=== PATIENT | female | born 1990 | race Caucasian/White ===

== ENCOUNTER 2024-02-06 11:44 | Emergency (ER) | payer OTHER, SELFPAY ==
[2024-02-06 11:51] VITALS: BP 116/76
--- NOTE | 2024-02-06 13:01 | ED.GENMED ---
History of Present Illness
General
Chief Complaint: Problems
Source: patient
Exam Limitations: none
Time Seen by Provider: 02/06/24 13:00
Nursing documentation reviewed up to this point in time: agreed with
History of Present Illness
History of Present Illness:
33-year-old female G3, P2 presents emergency department today with concerns of vaginal bleeding for past 3 days as well as left-sided intermittent pelvic cramping. 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 and her last menstrual
period was 12 weeks ago. Patient had the confirmed with blood work but has not yet had ultrasound. Patient states that she for started to notice pink-tinged vaginal discharge 2 days ago. Patient states that she called her OB who advised
her that this was nothing to be concerned about and to continue to monitor her symptoms. Then when she woke up this morning, she noticed bright red avril blood and she started to have to use pads to help control the bleeding. Patient states that
she is only use 1 pad since this bleeding started, denies using multiple pads per hour. Patient denies any lightheadedness or dizziness. Patient denies any headaches. Patient states that she is currently pain-free but again does note intermittent
cramping on the left side. Patient states that her previous pregnancies were unremarkable. Patient has a follow-up appointment with her [facility] [employer] [facility] on Wednesday in 2 days.
Review of Systems
Review of Systems
All Other Systems: ROS reviewed and negative except as documented in HPI and ROS
Phy Exam
Physical Exam
Physical Exam:
General: Patient is well appearing and in no acute distress; non-toxic
Skin: Warm and dry, no rashes or lesions
Head: Normocephalic, atraumatic
Eyes: Sclera non-icteric. EOMs intact. PERRLA.
Cardiac: Regular rate and rhythm, no murmus
Pulm: Normal respiratory effort, no wheezes, rales, rhonchi
Abdomen: No abdominal tenderness
Neuro: CN II-XII intact, no focal neurologic deficits.
Psychiatric: Appropriate mood and affect.
Course
Orders/Labs/Results
Orders:
Orders
02/06/24 13:10
w/ Transvaginal US [US W Transvaginal] Urgent
Comment:
Reason For Exam: left sided pelvic pain, vaginal bleeding
02/06/24 15:15
Type+Screen Urgent
Beta HCG Quantitative Urgent
Is this a screen?: No
Complete Blood Count/With Diff Urgent
Comprehensive Metabolic Panel Urgent
02/06/24 15:35
ABO2 Urgent
BBK Wristband Number:
Associate notified that ABO2 has been ordered: [id number]
Date: 02/06/24
Time: 15:25
[employer] Brake Coupler ID: [id number]
Abnormal Lab Results
02/06/24
15:15
Abs Immat Gran (auto) 0.1 H 10^3/uL
(0-0.05)
Immature Gran % 1.1 H %
(0-0.5)
Creatinine 0.5 L mg/dL
(0.6-1.0)
Total Bilirubin 1.6 H mg/dl
(0.2-1.3)
02/06/24 15:15
02/06/24 15:15
Vital Signs
Initial and Last Documented VS:
Initial Vital Signs
Temp Pulse Resp BP Pulse Ox
98 F 84 16 116/76 98
02/06/24 11:51 02/06/24 11:51 02/06/24 11:51 02/06/24 11:51 02/06/24 11:51
Last Documented Vital Signs
Temp Pulse Resp BP Pulse Ox
98 F 66 16 116/52 100
02/06/24 11:51 02/06/24 16:53 02/06/24 16:53 02/06/24 16:53 02/06/24 15:42
Information
Weeks gestation: Weeks: (7)
Location: Location: (intrauterine)
MDM/Problems Addressed
Differential Diagnosis Includes:
Differentials include threatened , implantation bleeding, vaginitis, physiologic cervical changes of , molar
MDM/Problems Addressed:
33-year-old G3, P2 female presents emergency department today with concerns of vaginal bleeding in first trimester . She also has intermittent left-sided pelvic cramping. She woke up this morning with avril blood but has had pink-tinged
discharge the past few days. She follows with [facility]. On physical exam, she is well-appearing in no acute distress. She is hemodynamically stable. Her CBC and CMP are unremarkable. She is O+, no RhoGAM indicated at this time. She
had ultrasound performed which demonstrated an intrauterine gestational sac and yolk sac appreciated estimated to be approximately 7 weeks and 4 days however there is no pole or heart rate demonstrated which suggests that the
is not viable. Discussed findings this OB on-call who recommends repeat ultrasound with patient's [facility] [employer] [facility] this week. Discussed findings with patient. Patient states that she has a follow-up with OB on Wednesday. Gave patient ultrasound CD
and results as well as blood work. Patient stable for discharge. Return precautions discussed.
Chronic conditions affecting care:
n/a
Acute Exacerbation and/or Progression of Chronic Illness:
n/a
*Pulse Oximetry
Patient hypoxic: no
*Critical Care Note
Total Time (30-74mins, 75-104mins- exclusive of procedures): Not Applicable
Data Reviewed
Review of Other/Old Records Reveals: Records (No previous ER physician documentation to review) and Discharge Summary (No discharge summaries [facility] to review)
Source: patient and records
Prescriptions/Medications Considered But Not Given:
n/a
Further Testing Considered But Not Given:
n/a
Patient Management
Escalation/DeEscalation of care consider admission/obs:
Admit not indicated, patient stable for discharge, case reviewed with my attending Dr. Mendiola
ED Attending Note
-
Portions of this chart may have been created with voice recognition software.� Occasional wrong word or��sound alike� substitutions may have occurred due to the inherent limitations of voice recognition software.
Discharge Plan
Departure
Patient Disposition: Home (Routine Discharge)
Date of Disposition: 02/06/24
Time of Disposition: 16:37
Patient with high blood pressure during this ER visit?: Yes
Condition: Good
Discharge Problem:
Vaginal bleeding
Instructions: Threatened Miscarriage (DC), Bleeding in early , BLOOD PRESSURE
Referrals:
UNKNOWN - PT DOES,NOT KNOW [Family Provider] -
Activity Restrictions/Additional Instructions:
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
Please return to the emergency department should you experience chest pain, shortness of breath, lightheadedness, dizziness, abdominal pain, or bleeding through multiple pads per hour.
Interventions
Interventions:
*Risk Screen - Suicide Last Done: 02/06/24 11:51
*General Assessment Last Done: 02/06/24 11:51
*Neglect/Abuse Screening Last Done: 02/06/24 11:51
*Nursing Disposition Last Done: 02/06/24 16:53
ED-Female Genitourinary Assessment Last Done: 02/06/24 15:17
Discharge Date and Time
Discharge Date/Time: 02/06/24 16:56
Print Language: MALIAN
[2024-02-06 15:27] LABS: % Basophils 0.5 % (0-2); % Eosinophils 1.2 % (0-6); % Immature Granulocytes 1.1 % (0-0.5); % Lymphocytes 25.3 % (20.5-51.1); % Monocytes 5.9 % (1.7-9.3); Absolute Eosinophils 0.1 10^3/uL (0-0.7); Absolute Immature Granulocytes 0.1 10^3/uL (0-0.05); Absolute Lymphocytes 1.9 10^3/uL (1.2-3.4); Absolute Monocytes 0.5 10^3/uL (0.1-0.6); Hematocrit 37.1 % (37.0-47.0); Hemoglobin 12.8 g/dL (12.0-16.0); Mean Corp Hgb Conc. 34.5 g/dL (33.0-37.0); Mean Corpuscular Hgb 28.3 pg (27.0-31.0); Mean Corpuscular Volume 82.1 fL (81.0-99.0); Mean Platelet Volume 8.9 fL (7.4-10.4); Nucleated Red Blood Cells % 0 %; Platelet Count 269 10^3/uL (130-400); Red Blood Cell Count 4.52 10^6/uL (4.20-5.40); Red Cell Dist. Width 12.4 % (11.5-14.5); White Blood Cell Count 7.6 10^3/uL (4.8-10.8)
[2024-02-06 15:41] LABS: ALT (SGPT) 18 U/L (0-35); AST (SGOT) 23 U/L (14-36); Albumin 4.7 g/dl (3.5-5.0); Alkaline Phosphatase 52 U/L (38-126); Blood Urea Nitrogen 14 mg/dl (7-17); Calcium 9.9 mg/dl (8.4-10.2); Carbon Dioxide 25 mmol/L (22-30); Chloride 103 mmol/L (98-107); Glucose 83 mg/dl (70-99); Potassium 3.8 mmol/L (3.5-5.1); Sodium 139 mmol/L (135-145); Total Bilirubin 1.6 mg/dl (0.2-1.3); Total Protein 7.4 g/dl (6.3-8.2); eGFR > 60.00
[2024-02-06 15:42] VITALS: BP 117/65
[2024-02-06 16:52] VITALS: BP 116/52
[2024-02-06 16:53] VITALS: BP 116/52
== END 2024-02-06 16:56 | disposition home or self-care (01) ==
LOC: EMR 11:44
PROVIDERS: Physician Assistant; EMERGENCY PHYSICIAN Emergency Medicine
DX: O20.9 Hemorrhage in early pregnancy, unspecified (principal); Z3A.11 11 weeks gestation of pregnancy
CPT/HCPCS: 99284; 76801; 76817; 80053; 84702; 85025; 86850; 86900; 86901

== ENCOUNTER 2024-07-17 19:32 | Emergency (ER) | payer OTHER, SELFPAY ==
[2024-07-17 19:38] VITALS: BP 122/77
[2024-07-17 19:57] LABS: % Basophils 0.5 % (0-2); % Eosinophils 1.2 % (0-6); % Immature Granulocytes 0.2 % (0-0.5); % Lymphocytes 26.4 % (20.5-51.1); % Monocytes 6.7 % (1.7-9.3); Absolute Eosinophils 0.1 10^3/uL (0-0.7); Absolute Lymphocytes 2.2 10^3/uL (1.2-3.4); Absolute Monocytes 0.6 10^3/uL (0.1-0.6); Absolute Neutrophils 5.4 10^3/uL (1.4-6.5); Hematocrit 34.8 % (37.0-47.0); Hemoglobin 11.1 g/dL (12.0-16.0); Mean Corp Hgb Conc. 31.9 g/dL (33.0-37.0); Mean Corpuscular Hgb 27.8 pg (27.0-31.0); Mean Platelet Volume 9.1 fL (7.4-10.4); Nucleated Red Blood Cells % 0 %; Platelet Count 402 10^3/uL (130-400); Red Cell Dist. Width 13.1 % (11.5-14.5); White Blood Cell Count 8.3 10^3/uL (4.8-10.8)
[2024-07-17 20:11] LABS: ALT (SGPT) 14 U/L (0-35); AST (SGOT) 20 U/L (14-36); Albumin 5.1 g/dl (3.5-5.0); Alkaline Phosphatase 74 U/L (38-126); Blood Urea Nitrogen 17 mg/dl (7-17); Calcium 9.9 mg/dl (8.4-10.2); Carbon Dioxide 25 mmol/L (22-30); Chloride 105 mmol/L (98-107); Glucose 97 mg/dl (70-99); Potassium 3.9 mmol/L (3.5-5.1); Sodium 140 mmol/L (135-145); Total Bilirubin 0.9 mg/dl (0.2-1.3); Total Protein 7.9 g/dl (6.3-8.2); eGFR > 60.00
[2024-07-17 20:22] LABS: Troponin I < 0.012 ng/ml
[2024-07-17 21:39] VITALS: BP 134/74
[2024-07-17 21:43] VITALS: BMI 22.1
[2024-07-17 22:00] VITALS: BP 132/65
--- NOTE | 2024-07-17 22:39 | ED.GENMED ---
History of Present Illness
General
Chief Complaint: Chest Problem
Time Seen by Provider: 07/17/24 22:07
History of Present Illness
History of Present Illness:
34-year-old female without significant past medical history presenting to the emergency department for right-sided shoulder pain. Patient reports pain is worse with deep inspiration. Denies any inciting injury or trauma. She went to urgent care
prior to arrival, advised that she come to the hospital for rule out 'PE '. Denies associated chest pain. Denies cough or fever. Denies abdominal pain or GI symptoms. Does note that she recently had a spontaneous miscarriage a few weeks ago at
14 weeks gestation. Notes the bleeding has since resolved as well as abdominal pain. Denies any known cardiac history. Denies additional acute medical complaints
Phy Exam
Physical Exam
Physical Exam:
General: Well-appearing, no clinical signs of dehydration, nontoxic and in no acute distress
HEENT: protecting airway
Neck: appears supple
CV: Normal heart rate, regular rhythm
Resp: No accessory muscle use, no increased work of breathing, lungs clear to auscultation bilaterally
Abd: Soft and non-distended, no tenderness to palpation
Extremities: No deformities, no swelling. Mild hypertonicity to the right trapezius muscle. No overlying skin changes. Range of motion to the right upper extremity is intact. No swelling or deformity
Neuro: alert, no focal neurologic deficit
: deferred
Rectal: deferred
Psych: Normal affect
Skin: Intact
Course
Orders/Labs/Results
Orders:
Orders
07/17/24 19:41
Electrocardiogram (*1) Urgent
Reason for Study: Chest Pain
EKG- Treatment ONCE
07/17/24 19:43
CT Chest PE Study Urgent
Comment:
Reason For Exam: pain on inspiration
07/17/24 19:50
Complete Blood Count/With Diff Urgent
Comprehensive Metabolic Panel Urgent
Troponin I Urgent
07/17/24 22:10
Electrocardiogram (*1) Urgent
EKG- Treatment ONCE
Abnormal Lab Results
07/17/24
19:50
RBC 4.00 L 10^6/uL
(4.20-5.40)
Hgb 11.1 L g/dL
(12.0-16.0)
Hct 34.8 L %
(37.0-47.0)
MCHC 31.9 L g/dL
(33.0-37.0)
Plt Count 402 H 10^3/uL
(130-400)
Albumin 5.1 H g/dl
(3.5-5.0)
07/17/24 19:50
07/17/24 19:50
Vital Signs
Initial and Last Documented VS:
Initial Vital Signs
Temp Pulse Resp BP Pulse Ox
98.0 F 77 18 122/77 100
07/17/24 19:38 07/17/24 19:38 07/17/24 19:38 07/17/24 19:38 07/17/24 19:38
Last Documented Vital Signs
Temp Pulse Resp BP Pulse Ox
98.0 F 77 15 134/74 99
07/17/24 19:38 07/17/24 19:38 07/17/24 21:40 07/17/24 21:39 07/17/24 21:39
MDM/Problems Addressed
MDM/Problems Addressed:
34-year-old female presenting for right shoulder pain and pain with deep inspiration. Vital signs on arrival are normal.
On exam patient is resting comfortably, no acute distress or discomfort. Unremarkable cardiac and pulmonary exam. EKG obtained on arrival, nonischemic. Patient without any coronary risk factors or concern for ACS at this time. Patient does note
a pleuritic quality to the pain, was sent for rule out PE. No PE risk factors other than recent . Patient had laboratory analysis and CT PE obtained prior to my assessment, which is normal. Ultimately suspect musculoskeletal quality to
patient's symptoms. Patient remained hemodynamically stable while in the emergency department. Feel stable for discharge with continued outpatient supportive therapy and PCP follow-up. Return precautions discussed and patient verbalized
understanding
*EKG
Interpreted by ED Provider?: Yes
EKG Intrepretation Date: 07/17/24
EKG Intrepretation Time: 22:41
Interpretation: normal
Heart Rate: 58
Rate: normal
Rhythm: sinus
[place]: normal axis
Interval: normal interval
QRS Pattern: normal QRS
Ischemia: no ischemia
*Critical Care Note
Total Time (30-74mins, 75-104mins- exclusive of procedures): Not Applicable
ED Attending Note
-
Portions of this chart may have been created with voice recognition software.� Occasional wrong word or��sound alike� substitutions may have occurred due to the inherent limitations of voice recognition software.
Discharge Plan
Departure
Patient Disposition: Home (Routine Discharge)
Date of Disposition: 07/17/24
Time of Disposition: 22:44
Patient with high blood pressure during this ER visit?: No
Discharge Problem:
Pain in right shoulder
Instructions: Pleuritic chest pain, Shoulder Sprain ED
Referrals:
Felipe Merino DO [Family Provider] -
Activity Restrictions/Additional Instructions:
You were seen in the emergency department for right-sided shoulder pain
You were found to have normal EKG, blood work, CT imaging of your chest without any evidence of a blood clot. We suspect musculoskeletal component. Please take Tylenol or Motrin as needed for pain.
Please follow-up closely with your primary care physician.
Return to the emergency department for any worsening of your symptoms, or any development of chest pain, difficulty breathing, abdominal pain with persistent vomiting and inability to tolerate food or liquid by mouth (concern for dehydration),
weakness, headache or confusion, fever greater than 100.4, or any additional symptoms that are concerning to you.
Thank you for choosing [facility].
Interventions
Interventions:
*Risk Screen - Suicide Last Done: 07/17/24 19:39
*General Assessment Last Done: 07/17/24 19:39
*Neglect/Abuse Screening Last Done: 07/17/24 19:39
*ED- Fall Risk Assessment Last Done: 07/17/24 21:39
*ED COVID-19 Vaccine History Last Done: 07/17/24 19:39
ED- Cardiac Assessment Last Done: 07/17/24 21:39
ED- Pulmonary Assessment Last Done: 07/17/24 21:39
Discharge Date and Time
Print Language: [email or web address]
[2024-07-17 23:00] VITALS: BP 123/75
== END 2024-07-17 23:05 | disposition home or self-care (01) ==
LOC: EMR 19:32
PROVIDERS: Student in an Organized Health Care Education/Training Program; EMERGENCY PHYSICIAN Student in an Organized Health Care Education/Training Program; FAMILY PHYSICIAN Family Medicine
DX: M25.511 Pain in right shoulder (principal)
CPT/HCPCS: 99285; 71275; 80053; 84484; 85025; 93005; Q9967